=== PATIENT | male | born 1955 | race Caucasian/White ===

== ENCOUNTER 2023-02-21 07:09 | Emergency (ER) | payer OTHER ==
[~2023-02-21] VITALS: Ht 172.7 cm; Wt 78.0 kg
[2023-02-21] MEDS ORDERED: CRESTOR10 MG PO (07:22)
== END 2023-02-21 14:01 | disposition home or self-care (01) ==
LOC: ER 07:09
DX: N39.0 Urinary tract infection, site not specified (principal); Z88.2 Allergy status to sulfonamides; K57.32 Diverticulitis of large intestine without perforation or abscess without bleeding

== ENCOUNTER 2024-12-19 08:36 | Emergency (ER) | payer OTHER ==
[~2024-12-19] VITALS: Ht 172.7 cm; Wt 72.6 kg
[~2024-12-19 08:36] MED LIST: CRESTOR10 MG PO
[2024-12-19] MEDS ORDERED: DIATRIZOATE MEGLUMINE, SODIUM 30 ML BOTTLE ONE (09:21)
[2024-12-19 09:43] LABS: BASO % 0.3 % (0.1-1.2); EOS # 0.08 (0.04-0.54); EOS % 1.1 % (0.7-7.0); HEMATOCRIT 41.6 % (40.1-51.0); LYMPH # 1.31 (1.18-3.74); MEAN CORPUSCULAR HEMOGLOBIN 31.4 pg (25.6-32.2); MONO # 0.52 (0.24-0.82); MONO % 7.2 % (4.7-12.5); NEUT # 5.31 (1.56-6.13); PLATELET COUNT 177 K/uL (163-369); RED BLOOD COUNT 4.46 M/uL (4.63-6.08); RED CELL DISTRIBUTION WIDTH 11.9 % (11.6-14.4)
[2024-12-19 09:57] LABS: PH,URINE 5.5 (5.0-8.0); URINE APPEARANCE Clear; URINE BILIRRUBIN Negative (NEGATIVE); URINE BLOOD Trace; URINE COLOR Yellow; URINE GLUCOSE Negative (NEGATIVE); URINE KETONE Trace (NEGATIVE); URINE LEUKOCYTE Negative; URINE NITRATE Negative; URINE PROTEIN Negative (NEGATIVE)
[2024-12-19 10:04] LABS: URINE BACTERIA 8.5 uL (0.0-1933); URINE RBC 2.7 uL (0.0-20.8)
[2024-12-19 10:12] LABS: CALCIUM 8.7 mg/dL (8.5-10.1); CREATININE SERUM 0.92 mg/dL (0.70-1.30); GFR 81.57; POTASSIUM 3.84 mEq/L (3.5-5.1)
[2024-12-19 10:43] LABS: URINE CAST 0.29 uL (0.0-1.40); URINE EPITHELIAL CELLS 0.7 uL (0.0-38.8); URINE WBC 1.5 uL (0.0-23.2)
== END 2024-12-19 15:40 | disposition home or self-care (01) ==
LOC: ER 08:46
PROVIDERS: Emergency Medicine
DX: K57.92 Diverticulitis of intestine, part unspecified, without perforation or abscess without bleeding (principal); R10.9 Unspecified abdominal pain; I10 Essential (primary) hypertension; Z88.2 Allergy status to sulfonamides; Z91.041 Radiographic dye allergy status
CPT/HCPCS: 36415; 74177; Q9965